=== PATIENT | female | born 1975 | race African-American/Black ===

== ENCOUNTER 2018-03-03 15:08 | Emergency (ER) | payer SELFPAY, OTHER ==
[2018-03-03] MEDS: diphenhydrAMINE HCL 25 MG CAPSULE PO (16:00)
[2018-03-03] MEDS: FAMOTIDINE 20 MG TABLET. PO (16:00)
[2018-03-03] MEDS: DEXAMETHASONE SOD PHOS 20 MG/5 ML VIAL. IM (16:01)
== END 2018-03-03 16:07 | disposition home or self-care (01) ==
LOC: ER 16:07
DX: L25.5 Unspecified contact dermatitis due to plants, except food (principal); Z77.22 Contact with and (suspected) exposure to environmental tobacco smoke (acute) (chronic)
CPT/HCPCS: 96372; 99283; J1100; Q0163

== ENCOUNTER 2018-03-05 15:40 | Emergency (ER) | payer SELFPAY ==
[2018-03-05 16:47] LABS: URINE HCG POC HCG NEGATIVE (Negative)
[2018-03-05 17:10] LABS: AMPHETAMINE/METHAMPHETAMINE NEG (NEG); BARBITURATES NEG (NEG); BENZODIAZEPINES NEG (NEG); CANNABINOIDS NEG (NEG); COCAINE NEG (NEG); ETHANOL, URINE NEG (NEG); METHADONE NEG (NEG); OPIATES NEG (NEG); PHENCYCLIDINE NEG (NEG)
== END 2018-03-05 17:42 | disposition home or self-care (01) ==
LOC: ER 17:42
DX: L08.89 Other specified local infections of the skin and subcutaneous tissue (principal); N89.8 Other specified noninflammatory disorders of vagina; Z88.2 Allergy status to sulfonamides
CPT/HCPCS: 80307; 81025; 87071; 87075; 87205; 99284